=== PATIENT | male | born 1980 | race American Indian/Alaskan Native ===

== ENCOUNTER 2017-01-01 16:08 | Emergency (ER) | payer SELFPAY ==
--- NOTE | 2017-01-01 16:52 | C.PDOC ---
History Of Present Illness 36-year-old male, presents to the emergency department with complaints of pain to left lower teeth/gums, that is associated with mild swelling. Patient denies any fever or bleeding. Time Seen by Provider: 01/01/17 16:14 Chief Complaint (Nursing): Dental Pain Past Medical History Reviewed: Historical Data, Nursing Documentation, Vital Signs Vital Signs: Last Vital Signs Temp 98.2 F 01/01/17 17:32 Pulse 63 01/01/17 17:32 Resp 19 01/01/17 17:32 BP 129/77 01/01/17 17:32 Pulse Ox 97 01/01/17 17:32 - [facility] Procedures INJECT/INFUSE NEC (02/02/06) Family History: States: No Known Family Hx - Social History Hx Alcohol Use: No Hx Substance Use: No Review Of Systems Except As Marked, All Systems Reviewed And Found Negative. Constitutional: Negative for: Fever ENT: Positive for: Other (tooth pain and swelling) Gastrointestinal: Negative for: Nausea, Vomiting Physical Exam - Physical Exam Appears: Non-toxic, No Acute Distress Skin: Warm, Dry, No Rash Head: Atraumatic Eye(s): bilateral: Normal Inspection Nose: Normal Oral Mucosa: Moist Teeth: Normal Dentition, Tender To Palpation (mild), No Avulsed, Other ( Swelling to left-lower gums) Throat: Normal, No Erythema, No Exudate Neck: Normal ROM, Supple ED Course And Treatment O2 Sat by Pulse Oximetry: 98 Disposition - Disposition Disposition: HOME/ ROUTINE Disposition Time: 17:21 Condition: STABLE Additional Instructions: Follow up with PMD and Dentist within 1-2 days. Return to ED if feel worse. Prescriptions: Penicillin VK [Pen-Vee K] 500 mg PO Q6 #28 tab Acetaminophen with Codeine [Tylenol with Codeine #3 Tablet] 1 each PO .Q4-6H # 20 tablet Instructions: Toothache (ED) - Clinical Impression Clinical Impression: Toothache - Scribe Statement The provider has reviewed the documentation as recorded by the Main Mendes All medical record entries made by the Alanisibkeegan were at my direction and personally dictated by me. I have reviewed the chart and agree that the record accurately reflects my personal performance of the history, physical exam, medical decision making, and the department course for this patient. I have also personally directed, reviewed, and agree with the discharge instructions and disposition.
[2017-01-01] MEDS ORDERED: Acetaminophen-Codeine 300/30 mg Tab PO STA (16:53)
[2017-01-01] MEDS ORDERED: Acetaminophen-Codeine 300/30 mg Tab PO ONE (17:14)
[2017-01-01 17:33] VITALS: BP 129/77; PULSE 63; RESP 19; TEMP 98.2
[2017-01-01 18:32] VITALS: O2SAT 98
== END 2017-01-01 17:33 | disposition home or self-care (01) ==
LOC: C.ER 16:08
DX: K08.89 Other specified disorders of teeth and supporting structures (principal)

== ENCOUNTER 2017-02-16 19:47 | Emergency (ER) | payer SELFPAY ==
[2017-02-16 19:53] VITALS: BP 144/79; PULSE 87; RESP 18; TEMP 98.7; O2SAT 99
[2017-02-16] MEDS ORDERED: Naproxen 550 mg Tab PO STA (20:59)
--- NOTE | 2017-02-16 21:02 | C.PDOC ---
History Of Present Illness 36 y/o male presents to ED with complaints of left sided dental pain since yesterday. Patient states he was eating a sandwich yesterday when pain started and states he had same pain 2 months ago but did not finish the antibiotics nor did he follow up with dentist. Patient denies fever, n/v/d, difficulty breathing /swallowing or any other complaints at this time. Time Seen by Provider: 02/16/17 20:56 Chief Complaint (Nursing): Med Refill History Per: Patient History/Exam Limitations: no limitations Onset/Duration Of Symptoms: Days Current Symptoms Are (Timing): Still Present Past Medical History Reviewed: Historical Data, Nursing Documentation, Vital Signs Vital Signs: Last Vital Signs Temp 98.7 F 02/16/17 19:51 Pulse 87 02/16/17 19:51 Resp 18 02/16/17 19:51 BP 144/79 02/16/17 19:51 Pulse Ox 99 02/16/17 21:10 - [facility] Procedures INJECT/INFUSE NEC (02/02/06) Family History: States: No Known Family Hx - Social History Hx Alcohol Use: No Hx Substance Use: No - Immunization History Hx Tetanus Toxoid Vaccination: No Hx Influenza Vaccination: No Hx Pneumococcal Vaccination: No Review Of Systems Except As Marked, All Systems Reviewed And Found Negative. Constitutional: Negative for: Fever, Chills ENT: Positive for: Mouth Pain, Mouth Swelling. Negative for: Nose Congestion, Throat Pain Physical Exam - Physical Exam Appears: Non-toxic, No Acute Distress Skin: Normal Color, Warm Head: Atraumatic, Normacephalic Eye(s): bilateral: Normal Inspection, EOMI Nose: Normal Oral Mucosa: Moist Teeth: No Caries, Tender To Palpation (2nd premolar mandibular) Gingiva: Erythema, Swelling, Tender, No Bleeding, Other ((-) fluctuance) Throat: Normal, No Erythema, No Exudate Neck: Normal ROM, Supple Chest: Symmetrical Cardiovascular: Rhythm Regular, No Murmur Respiratory: Normal Breath Sounds, No Accessory Muscle Use, No Rales, No Rhonchi , No Wheezing Extremity: Normal ROM Neurological/Psych: Oriented x3, Normal Speech ED Course And Treatment O2 Sat by Pulse Oximetry: 99 (RA) Pulse Ox Interpretation: Normal Progress Note: TOlerating PO. Afebrile. Instructed dental follow up in 1-2 days. Reevaluation Time: 21:10 Reassessment Condition: Improved Disposition - Disposition Referrals: Non [facility] Provider, [Primary Care Provider] - Disposition: HOME/ ROUTINE Disposition Time: 21:00 Condition: STABLE Additional Instructions: Follow up with dentist in 1-2 days. Return to ER if symptoms persist or worsen. Prescriptions: Amoxicillin 875 mg PO BID #20 tablet Naproxen [Naprosyn] 1 tab PO BID PRN #20 tab PRN Reason: Pain Instructions: Toothache (ED) - Clinical Impression Clinical Impression: Toothache - Scribe Statement The provider has reviewed the documentation as recorded by the Scribe Janna Barger All medical record entries made by the Alanisibkeegan were at my direction and personally dictated by me. I have reviewed the chart and agree that the record accurately reflects my personal performance of the history, physical exam, medical decision making, and the department course for this patient. I have also personally directed, reviewed, and agree with the discharge instructions and disposition.
[2017-02-16] MEDS ORDERED: Naproxen 550 mg Tab PO ONE (21:04)
== END 2017-02-16 21:10 | disposition home or self-care (01) ==
LOC: C.ER 19:47 → SUPCPDRO 19:47 → C.ER 21:10
DX: K08.89 Other specified disorders of teeth and supporting structures (principal)

== ENCOUNTER 2018-01-30 20:52 | Emergency (ER) | payer SELFPAY ==
[2018-01-30 21:08] VITALS: BP 132/80; PULSE 82; RESP 20; TEMP 99; O2SAT 98
--- NOTE | 2018-01-30 21:20 | C.PDOC ---
History Of Present Illness 37 year old male presents to the ED c/o swelling and redness to his right foot for the past 2 days. Patient states he was bitten by an insect, patient has been constantly scratching and noticed area was getting worse. Patient denies fever, chill, nausea, vomit, weakness, numbness. Time Seen by Provider: 01/30/18 21:14 Chief Complaint (Nursing): Lower Extremity Problem/Injury History Per: Patient History/Exam Limitations: no limitations Onset/Duration Of Symptoms: Days (2) Location Of Injury: Right: Foot Quality Of Symptoms: Itching, Swollen Recent travel outside of the [place]: No Additional History Per: Patient Past Medical History Reviewed: Historical Data, Nursing Documentation, Vital Signs Vital Signs: Last Vital Signs Temp 99 F 01/30/18 21:02 Pulse 82 01/30/18 21:02 Resp 20 01/30/18 21:02 BP 132/80 01/30/18 21:02 Pulse Ox 98 01/30/18 21:31 - Medical History PMH: No Chronic Diseases Surgical History: No Surg Hx - [facility] Procedures INJECT/INFUSE NEC (02/02/06) Family History: States: Unknown Family Hx - Social History Hx Alcohol Use: No Hx Substance Use: No - Immunization History Hx Tetanus Toxoid Vaccination: No Hx Influenza Vaccination: Yes Hx Pneumococcal Vaccination: No Review Of Systems Constitutional: Negative for: Fever, Chills Cardiovascular: Negative for: Chest Pain Respiratory: Negative for: Shortness of Breath Gastrointestinal: Negative for: Nausea, Vomiting Skin: Positive for: Rash Neurological: Negative for: Weakness, Numbness Physical Exam - Physical Exam Appears: Non-toxic, No Acute Distress Skin: Normal Color, Warm, Dry Head: Atraumatic, Normacephalic Eye(s): bilateral: Normal Inspection Oral Mucosa: Moist Extremity: Normal ROM, No Tenderness, No Calf Tenderness, Capillary Refill (< 2 seconds), Swelling (and erythema at dorsal and lateral right foot), Other (2 visible insect bites,scab to the distal foot between 2nd and 3rd digits. ) Pulses: Left Dorsalis Pedis: Normal, Right Dorsalis Pedis: Normal Neurological/Psych: Oriented x3, Normal Speech Gait: Steady ED Course And Treatment O2 Sat by Pulse Oximetry: 98 (ON RA) Pulse Ox Interpretation: Normal Medical Decision Making Medical Decision Making: patient with cellulitis to right foot from infected insect bite. Treated with Bactrim and Keflex. Ibuprofen given for pain and swelling. Recommend rest and elevation of extremity. Follow up in 2-3 days for wound check or if area worsening. Disposition Counseled Patient/Family Regarding: Diagnosis, Need For Followup, Rx Given - Disposition Referrals: [facility] [Outside] [facility] [Outside] Disposition: HOME/ ROUTINE Disposition Time: 21:50 Condition: GOOD Additional Instructions: Take antibiotics twice daily for one week Rest and elevate foot Take ibuprofen for pain and inflammation follow up in 2-3 days for wound check See podiatry or clinic Prescriptions: Cephalexin [cephalexin] 500 mg PO Q12 #14 cap Ibuprofen [Motrin] 600 mg PO Q8 #30 tab Sulfamethoxazole/Trimethoprim [Bactrim DS 800 mg-160 mg] 1 tab PO BID #14 tab Instructions: Cellulitis (Skin Infection), Adult (DC) Forms: [facility] (Citizen [place]) - POA Present On Arrival: None - Clinical Impression Clinical Impression: Cellulitis of foot, Infected insect bite - PA / [employer] / Resident Statement MD/DO has reviewed & agrees with the documentation as recorded. - Scribe Statement The provider has reviewed the documentation as recorded by the Scribe Gabriele Waldron All medical record entries made by the Scribe were at my direction and personally dictated by me. I have reviewed the chart and agree that the record accurately reflects my personal performance of the history, physical exam, medical decision making, and the department course for this patient. I have also personally directed, reviewed, and agree with the discharge instructions and disposition.
[2018-01-30] MEDS ORDERED: Tmp-Smz 800 mg-160 mg DS Tab ONE (21:22)
[2018-01-30] MEDS ORDERED: Tmp-Smz 800 mg-160 mg DS Tab PO SCH (21:30)
== END 2018-01-30 21:55 | disposition home or self-care (01) ==
LOC: C.ER 20:52
DX: L03.115 Cellulitis of right lower limb (principal); S90.861A Insect bite (nonvenomous), right foot, initial encounter; W57.XXXA Bitten or stung by nonvenomous insect and other nonvenomous arthropods, initial encounter

== ENCOUNTER 2018-04-19 21:37 | Emergency (ER) | payer SELFPAY ==
[2018-04-19 21:56] VITALS: BP 126/80; PULSE 100; RESP 18; TEMP 99.2; O2SAT 94
--- NOTE | 2018-04-19 22:00 | C.PDOC ---
History Of Present Illness 38 year old male presents to ED with complaints of toothache and reports gum swelling since yesterday and thinks his face is swollen. Denies any fever, bleeding, drainage, difficulty swallowing. Time Seen by Provider: 04/19/18 21:54 Chief Complaint (Nursing): Dental Pain History Per: Patient History/Exam Limitations: no limitations Onset/Duration Of Symptoms: Days (2) Current Symptoms Are (Timing): Still Present Past Medical History Reviewed: Historical Data, Nursing Documentation, Vital Signs Vital Signs: Last Vital Signs Temp 99.2 F 04/19/18 21:55 Pulse 100 H 04/19/18 21:55 Resp 18 04/19/18 21:55 BP 126/80 04/19/18 21:55 Pulse Ox 94 L 04/19/18 21:55 - Medical History PMH: No Chronic Diseases - [facility] Procedures INJECT/INFUSE NEC (02/02/06) Family History: States: Unknown Family Hx - Social History Hx Alcohol Use: No Hx Substance Use: No - Immunization History Hx Tetanus Toxoid Vaccination: No Hx Influenza Vaccination: Yes Hx Pneumococcal Vaccination: No Review Of Systems Constitutional: Negative for: Fever, Malaise Eyes: Negative for: Vision Change ENT: Positive for: Mouth Pain. Negative for: Ear Pain, Nose Congestion, Throat Pain Respiratory: Negative for: Cough, Shortness of Breath Neurological: Negative for: Headache Physical Exam - Physical Exam Appears: Non-toxic, No Acute Distress Skin: Warm, Dry, No Rash Head: Atraumatic, Normacephalic Eye(s): bilateral: Normal Inspection, EOMI Ear(s): Bilateral: Normal Nose: Normal, No Flaring, No Discharge Oral Mucosa: Moist Tongue: Normal Appearing, No Swelling Lips: Normal Appearing, No Swelling Teeth: Caries, Tender To Palpation (left upper central incisor), No Loose, No Avulsed Gingiva: No Erythema, No Ulceration, Swelling (minimal to left upper mouth), No Bleeding, No Abscess Throat: Normal, No Erythema, No Exudate, No Drooling, No Mass Neck: Normal ROM Chest: Symmetrical Cardiovascular: Rhythm Regular, No Murmur Respiratory: Normal Breath Sounds, No Wheezing Extremity: Bilateral: Atraumatic, Normal ROM Neurological/Psych: Oriented x3, Normal Speech ED Course And Treatment O2 Sat by Pulse Oximetry: 94 Medical Decision Making Medical Decision Making: Patient with dental pain for 2 days. No signs of abscess on exam. Penicillin PO given. Recommend analgesics and to follow up with dentist Disposition Counseled Patient/Family Regarding: Diagnosis, Need For Followup, Rx Given - Disposition Referrals: [facility] [Outside] Disposition: HOME/ ROUTINE Disposition Time: 22:02 Condition: GOOD Additional Instructions: Follow up with Dentist Take antibiotic twice daily Take pain medicine as needed Prescriptions: Ibuprofen [Motrin] 600 mg PO Q8 #30 tab Penicillin VK [Penicillin VK Tab] 1 tab PO BID #20 tab Instructions: Tooth Decay, Adult (DC) - POA Present On Arrival: None - Clinical Impression Clinical Impression: Dental caries, Gingivitis
== END 2018-04-19 22:19 | disposition home or self-care (01) ==
LOC: C.ER 21:37
DX: K02.9 Dental caries, unspecified (principal); K05.10 Chronic gingivitis, plaque induced